=== PATIENT | female | born 1935 | race Caucasian/White ===

== ENCOUNTER 2025-08-27 21:40 | Emergency (ER) | payer OTHER ==
[2025-08-27] MEDS ORDERED: NA CHLORIDE 0.9% 1,000 ML ONE (22:12)
[2025-08-27 22:42] LABS: Absolute Lymphocytes (CBC) 3.9 K/uL (0.7-4.9); Hematocrit 37.0 % (36.0-45.0); Hemoglobin 12.0 g/dL (12.0-15.0); MCH 29.9 pg (27.0-35.0); MCHC 32.4 g/dL (32.0-36.0); MCV 92.4 fL (80-100); MPV 8.2 fL (7.6-11.3); Nucleated RBC Absolute Count 0.0 (0-0); Nucleated Red Blood Cells % 0.1 % (0-0); RBC Red Blood Cell Count 4.00 M/uL (3.86-4.86); White Blood Count 12.00 thou/uL (4.3-10.9)
[2025-08-27 22:44] LABS: Sqamous Epithelial <5 /HPF (None Seen); Urine Crystals Unidentified Few /HPF (None Seen); Urine Micro Reflex YN NO BILL MICROSCOPIC; Urine WBC Clump Occasional /HPF (None Seen)
[2025-08-27 22:50] LABS: PT Prothrombin Time 11.7 SECONDS (10-13.0); PTT, Activated Partial Thromb 31.4 SECONDS (27.2-37.4); Protime INR 1.04
[2025-08-27 22:59] LABS: Influenza A Ag Negative; Influenza B Ag Negative; SARS-CoV-2 Antigen Rapid Res Negative (Negative)
[2025-08-27 23:08] LABS: ALT/SGPT 21.0 U/L (13-56); AST/SGOT 16.0 U/L (15-37); Albumin 3.7 g/dL (3.4-5.0); Albumin/Globulin Ratio 0.9 (1.1-1.8); Alkaline Phosphatase 92.0 U/L (45-117); Anion Gap 10.4 mEq/L (5.0-15.0); BUN Blood Urea Nitrogen 21.0 mg/dL (7-18); Globulin 3.9 g/dL (2.3-3.5); Glucose Level 104.0 mg/dL (74-106); NT PRO-BNP 224.0 pg/mL (<450); Potassium 4.4 mEq/L (3.5-5.1); Thyroid Stimulating Hormone 3.11 uIU/mL (0.358-3.740); Troponin High Sensitivity 7.6 pg/mL (<58.9)
--- NOTE | 2025-08-27 23:49 | RAD REPORT ---
PROCEDURE: CT Head Without Intravenous Contrast CLINICAL INDICATION: The patient is 89 years old and is Female; AMS TECHNIQUE: Axial computed tomography images of the head/brain without intravenous contrast. Sagittal and coron al reformatted images were created and reviewed. This CT exam was performed using one or more of the following dose reduction techniques: automated exposure control, adjustment of the mA and/or kV according to patient size, and/or use of iterative reconstruction technique. DLP: 1648 mGy*cm COMPARISON: None. FINDINGS: BRAIN: Cerebral volume loss and chronic small vessel ischemic changes. No hemorrhage. No mass effect or midline shift. VENTRICLES: Unremarkable. No ventriculomegaly. BONES/JOINTS: Unremarkable. No acute fracture. SOFT TISSUES: Unremarkable. VASCULATURE: Vascular calcifications. SINUSES: Unremarkable as visualized. No acute sinusitis. MASTOID AIR CELLS: Unremarkable as visualized. No mastoid effusion. ORBITS: Prior cataract surgery. IMPRESSION: 1. No acute intracranial hemorrhage, hydrocephalus or herniation. 2. Cerebral volume loss and chronic small vessel ischemic changes. Consider MRI brain for further evaluation. Electronically signed by: Jairo Flores DO 08/27/2025 11:41 PM CDT RP 9 Due to temporary technical issues with the PACS/[employer] reporting system, reports are being lida d by the in-house radiologist without review as a courtesy to ensure prompt reporting the interpreting radiologist is fully responsible for the content of the report. Transcribed Date/Time: 08/27/2025 11:49 PM
--- NOTE | 2025-08-27 23:49 | RAD REPORT ---
EXAM: CT Chest, Abdomen and Pelvis Without Intravenous Contrast CLINICAL HISTORY: The patient is 89 years old and is Female; ureteral stent right TECHNIQUE: Axial computed tomography images of the chest, abdomen and pelvis without intravenous contrast. S agittal and coronal reformatted images were created and reviewed. This CT exam was performed using one or more of the following dose reduction techniques: automated exposure control, adjustmen t of the mA and/or kV according to patient size, and/or use of iterative reconstruction technique. COMPARISON: No relevant prior studies available. FINDINGS: CHEST: LUNGS AND PLEURAL SPACES: Scarring of the lung apices is noted. The lungs are otherwise well-infl ated and clear. There is no effusion or pneumothorax. No mass. HEART: No cardiomegaly. No pericardial effusion. ABDOMEN: LIVER: Homogeneous without focal mass. GALLBLADDER AND BILE DUCTS: Surgical clips are present in the right upper quadrant, consistent wi th previous cholecystectomy. PANCREAS: Unremarkable. No ductal dilation. SPLEEN: Unremarkable. ADRENALS: Unremarkable. No mass. KIDNEYS AND URETERS: Mild/moderate right hydronephrosis and dilatation of the right renal pelvis and proximal right ureter is noted. There is no hydroureteronephrosis of the left kidney. No obstructing renal or ureteral calculus of either kidney is noted. STOMACH AND BOWEL: Stomach is relatively decompressed. The small bowel is normal in caliber. A mo derate to large amount of stool is noted throughout colon. There is no mucosal thickening or evidence of obstruction. PELVIS: APPENDIX: The appendix is not definitively visualized. However, there are no inflammatory changes seen at the expected location of the appendix to suggest appendicitis. BLADDER: Unremarkable. No stones. REPRODUCTIVE: The patient is status post hysterectomy. CHEST, ABDOMEN and PELVIS: INTRAPERITONEAL SPACE: Unremarkable. No significant fluid collection. No free air. BONES/JOINTS: Scoliotic curvature of the lumbar spine is present. Severe left hip joint space peter rowing, subchondral cyst formation, and sclerosis is present. There is no acute fracture. SOFT TISSUES: The soft tissues are normal. VASCULATURE: Atherosclerosis of the vasculature is present. The vessels are normal in caliber. No aortic aneurysm. LYMPH NODES: Unremarkable. No enlarged lymph nodes. TUBES, LINES AND DEVICES: A right double-J ureteral stent is present. The superior aspect of the stent is located within the proximal ureter beyond the UPJ. The distal aspect is present within the bladder. IMPRESSION: 1. Right double-J ureteral stent superior aspect located in the proximal ureter, inferior to the UP J. Mild to moderate right hydronephrosis and dilatation of the right renal pelvis and proximal ureter. 2. Moderate to large stool burden without obstruction. Electronically signed by: Allie France MD 08/27/2025 11:45 PM CDT RP Due to temporary technical issues with the PACS/[employer] reporting system, reports are being lida d by the in-house radiologist without review as a courtesy to ensure prompt reporting the interpreting radiologist is fully responsible for the content of the report. Transcribed Date/Time: 08/27/2025 11:48 PM
--- NOTE | 2025-08-28 00:41 | EDPHYS ---
Physician Documentation [facility] Name: Unique Henriquez Age: 89 yrs Sex: Female : 1935 Arrival Date: 08/27/2025 Time: 21:40 Bed 7 Private MD: ED Physician Ramón Power HPI: 08/27 22:09 This 89 yrs old Female presents to ER via Unassigned with complaints of sp4 confusion, slow mentation. 08/28 06:22 Patient presents with complaint of acute confusion and slow mentation developing over sp4 the past 2 days. Historical: - Allergies: 08/27 22:17 No Known Allergies; ha1 - PMHx: 22:17 Hypertensive disorder; UTIs; ha1 - PSHx: 22:17 bladder stent; ha1 - Immunization history:: Adult Immunizations up to date. - Infectious Disease History:: Denies. - Social history:: Smoking status: unknown. - Family history:: not pertinent. ROS: 08/28 06:22 Constitutional: Negative for fever, chills, and weight loss, positive for mental sp4 slowing All other systems are negative, Exam: 06:22 Constitutional: This is a well developed, well nourished patient who is awake, alert, sp4 and in no acute distress. Head/Face: Normocephalic, atraumatic. Eyes: Pupils equal round and reactive to light, extra-ocular motions intact. Lids and lashes normal. Conjunctiva and sclera are not injected. Cornea within normal limits. Periorbital areas with no swelling, redness, or edema. ENT: Nares patent. No nasal discharge, no septal abnormalities noted. Tympanic membranes are normal and external auditory canals are clear. Oropharynx with no redness, swelling, or masses, exudates, or evidence of obstruction, uvula midline. Mucous membranes moist. Neck: Trachea midline, no thyromegaly or masses palpated, and no cervical lymphadenopathy. Supple, full range of motion without nuchal rigidity, or vertebral point tenderness. Chest/axilla: Normal chest wall appearance and motion. Nontender with no deformity. No lesions are appreciated. Cardiovascular: Regular rate and rhythm with a normal S1 and S2. No gallops, murmurs, or rubs. No pulse deficits. Respiratory: Lungs have equal breath sounds bilaterally, clear to auscultation and percussion. No rales, rhonchi or wheezes noted. No increased work of breathing, no retractions or nasal flaring. Abdomen/GI: Soft, with normal bowel sounds. No distension or tympany. No guarding or rebound. No evidence of tenderness throughout. Back: No spinal tenderness. No costovertebral tenderness. Skin: Warm, dry with normal turgor. Normal color with no rashes, no lesions, and no evidence of cellulitis. MS/ Extremity: Pulses equal, no cyanosis. Neurovascular intact. Full, normal range of motion. Neuro: Awake and alert, GCS 15, oriented to person, place, time, and situation. Cranial nerves II-XII grossly intact. Motor strength 5/5 in all extremities. Sensory grossly intact. Psych: Awake, alert, with orientation to person, place and time. Behavior, mood, and affect are within normal limits 06:22 ECG was reviewed by the Attending Physician. EKG at 2238 normal sinus rhythm, normal EKG Vital Signs: 08/27 21:59 BP 164 / 84; Pulse 66; Resp 19 S; Temp 97.6(O); Pulse Ox 98% on R/A; Weight 68.04 kg; ha1 Height 5 ft. 3 in. ; 08/28 00:25 BP 150 / 50; Pulse 78; Resp 19; Pulse Ox 97% on R/A; kd3 08/27 21:59 Body Mass Index 26.57 (68.04 kg, 160.02 cm) ha1 NIH Stroke Scale Scores: 06:24 NIHSS Score: 0 sp4 [place] Score: 06:24 Eye Response: spontaneous(4). Motor Response: obeys commands(6). Verbal Response: sp4 oriented(5). Total: 15. MDM: 08/27 22:11 Medical Screening Exam initiated sp4 08/28 06:25 Differential Diagnosis: CVA, electrolyte abnormality, hypoglycemia, intracranial bleed, sp4 pneumonia, seizure, sepsis, TIA, UTI, volume depletion. Data reviewed: vital signs, nurses notes, lab test result(s), cardiac enzymes, CBC, electrolytes, hepatic panel, urinalysis, EKG, radiologic studies, CT scan, plain films. Consideration of Admission/Observation Escalation of care including admission/observation considered. ED course: Patient has what appears to be stent urine, without signs of acute UTI. Patient stable for discharge home. Recommends follow-up with primary care physician Dr. العراقي. 06:26 ED course: 1. Right double-J ureteral stent superior aspect located in the proximal sp4 ureter, inferior to the UPJ. Mild to moderate right hydronephrosis and dilatation of the right renal pelvis and proximal ureter. 2. Moderate to large stool burden without obstruction. Electronically signed by: Allie France MD 08/27/2025 11:45 PM. ED course: COMPARISON: None. FINDINGS: BRAIN: Cerebral volume loss and chronic small vessel ischemic changes. No hemorrhage. No mass effect or midline shift. VENTRICLES: Unremarkable. No ventriculomegaly. BONES/JOINTS: Unremarkable. No acute fracture. SOFT TISSUES: Unremarkable. VASCULATURE: Vascular calcifications. SINUSES: Unremarkable as visualized. No acute sinusitis. MASTOID AIR CELLS: Unremarkable as visualized. No mastoid effusion. ORBITS: Prior cataract surgery. IMPRESSION: 1. No acute intracranial hemorrhage, hydrocephalus or herniation. 2. Cerebral volume loss and chronic small vessel ischemic changes. Consider MRI brain for further evaluation.. 08/27 22:10 Order name: BNP; Complete Time: 00: 08/27 22:10 Order name: Blood Culture Adult (2) [facility] 08/27 22:10 Order name: CBC with Diff; Complete Time: 00: 08/27 22:10 Order name: CMP; Complete Time: 00: [facility] 08/27 22:10 Order name: Lactate w/ 2H reflex if indic.; Complete Time: 00: [facility] 08/27 22:10 Order name: Protime (+inr); Complete Time: 00: [facility] 08/27 22:10 Order name: Ptt, Activated; Complete Time: 00: [facility] 08/27 22:10 Order name: Troponin HS; Complete Time: 00: [facility] 08/27 22:10 Order name: UA W/ Microscopic; Complete Time: 00: 08/27 22:11 Order name: COVID-19 Ag + Flu A+B Ag; Complete Time: 00: 08/27 22:11 Order name: TSH; Complete Time: 00: [facility] 08/27 22:11 Order name: T4 Free; Complete Time: 00: [facility] 08/27 22:10 Order name: CT Head Brain wo Cont; Complete Time: 00:21 sp4 08/27 22:11 Order name: CT Chest Abdomen Pelvis W/O Contrast; Complete Time: 00:21 sp4 08/27 22:10 Order name: Accucheck; Complete Time: 23:14 sp4 08/27 22:10 Order name: Cardiac monitoring; Complete Time: 22:38 sp4 08/27 22:10 Order name: Cath; Complete Time: 22:38 sp4 08/27 22:10 Order name: EKG - Nurse/Tech; Complete Time: 22:40 sp4 08/27 22:10 Order name: IV Saline Lock - Large Bore; Complete Time: 22:38 sp4 08/27 22:10 Order name: Labs collected and sent; Complete Time: 22:38 sp4 08/27 22:10 Order name: O2 Per Protocol; Complete Time: 22:38 sp4 08/27 22:10 Order name: O2 Sat Monitoring; Complete Time: 22:38 sp4 08/27 22:10 Order name: Vital Signs; Complete Time: 22:38 sp4 EC/26 22:38 Rate is 62 beats/min. Rhythm is regular, Normal Sinus Rhythm. QRS [place] is Normal. ND sp4 interval is normal. QRS interval is normal. QT interval is normal. No Q waves. T waves are Normal. No ST changes noted. Clinical impression: Normal ECG. Interpreted by me. Reviewed by me. Administered Medications: 22:54 Drug: NS 0.9% IV 1000 ml IV at 100 ml/hr once; to be given as a bolus over 60 minutes lg3 Route: IV; Rate: 100 ml/hr; Site: right antecubital; 08/28 01:25 Follow up: IV Status: Order to discontinue infusion kd3 Disposition: 08/29 00:19 Chart complete. sp4 Disposition Summary: 08/28/25 00:40 Discharge Ordered Notes: Return to ER for any other medical concerns Location: Home sp4 Problem: new sp4 Symptoms: have improved sp4 Condition: Stable sp4 Diagnosis - Acute hypoactive delirium sp4 Followup: sp4 - With: Bryan العراقي MD - When: 7 - 10 days - Reason: Recheck today's complaints Discharge Instructions: - Discharge Summary Sheet sp4 - Delirium sp4 Forms: - Patient Portal Instructions sp4 NIH Stroke Scale - NIH Stroke Score Date: 08/28/2025 Time: 06:24 Total Score = 0 10. Dysarthria (speech clarity - read or repeat words) - 0(Normal) 11. Extinction and Inattention (visual/tactile/auditory/spatial/personal) - 0(No abnormality) 1a. Level of Consciousness (LOC) - 0(Alert) 1b. Level of Consciousness (LOC) (Month \T\ Age) - 0(Both) 1c. LOC Commands (Open \T\ Closes Eyes/Electroencephalograph Technician) - 0(Both) 2. Best Gaze (Lateral Gaze Paresis) - 0(Normal) 3. Visual Field Loss - 0(No visual loss) 4. Facial Palsy - 0(Normal) 5a. Left Arm: Motor (10-second hold) - 0(No drift) 5b. Right Arm: Motor (10-second hold) - 0(No drift) 6a. Left Leg: Motor (5-second hold - always test supine) - 0(No drift) 6b. Right Leg: Motor (5-second hold - always test supine) - 0(No drift) 7. Limb Ataxia (finger/nose \T\ heel/garcia - test with eyes open) - 0(Absent) 8. Sensory Loss (pinprick arms/legs/face) - 0(Normal) 9. Best Language: Aphasia (description/naming/reading) - 0(No aphasia) Initials: sp4 Signatures: Dispatcher [employer] EDKhushbu Morrow RN RN lg3 Kathi Doherty RN RN ha1 Ramón Power MD MD sp4 Breann Mark RN kd3 Corrections: (The following items were deleted from the chart) 08/27 22:10 22:10 PROBNP+C.LAB.BRZ ordered. EDMS EDMS 22:10 22:10 BLOOD CULTURE*+BA.LAB.BRZ ordered. EDMS EDMS 22:10 22:10 CBC+H.LAB.BRZ ordered. EDMS EDMS 22:10 22:10 COMPREHENSIVE METABOLIC PANEL+C.LAB.BRZ ordered. EDMS EDMS 22:10 22:10 LACTATE+C.LAB.BRZ ordered. EDMS EDMS 22:10 22:10 PROTIME (+INR)+COAG.LAB.BRZ ordered. EDMS EDMS 22:10 22:10 PTT, ACTIVATED+COAG.LAB.BRAravind ordered. EDMS EDMS : 22:10 Troponin High Sensitivity+C.LAB.BRAravind ordered. EDMS EDMS : 22:10 UA W/ Microscopic+U.LAB.BRAravind ordered. EDMS EDMS : 22:11 Head Brain Wo Cont+CT.RAD.BRZ ordered. EDMS EDMS
--- NOTE | 2025-08-28 00:41 | ER ---
Nurse's Notes [facility] Name: Unique Henriquez Age: 89 yrs Sex: Female : 1935 Arrival Date: 08/27/2025 Time: 21:40 Bed 7 Private MD: Diagnosis: Acute hypoactive delirium Presentation: 08/27 21:59 Chief complaint: EMS states: DAUGHTER REPORTS THAT SHE HAS GETTING CONFUSED DURING THE ha1 NIGHT. BACK PAIN DUE A PREVIOUS FALL A WEEK AGO. 21:59 Coronavirus screen: Client denies travel out of the [place] in the last 14 days. Ebola ha1 Screen: No symptoms or risks identified at this time. Initial Sepsis Screen: Does the patient meet any 2 criteria? No. Patient's initial sepsis screen is negative. Does the patient have a suspected source of infection? No. Patient's initial sepsis screen is negative. Risk Assessment: Do you want to hurt yourself or someone else? Patient reports no desire to harm self or others. Onset of symptoms was August 27, 2025. 21:59 Method Of Arrival: EMS: [facility] ha1 21:59 Acuity: DHRUV 3 ha1 Historical: - Allergies: 22:17 No Known Allergies; ha1 - PMHx: 22:17 Hypertensive disorder; UTIs; ha1 - PSHx: 22:17 bladder stent; ha1 - Immunization history:: Adult Immunizations up to date. - Infectious Disease History:: Denies. - Social history:: Smoking status: unknown. - Family history:: not pertinent. Screenin:41 [facility] ED Fall Risk Assessment (Adult) History of falling in the last 3 months, kd3 including since admission Yes- fall prone (multiple falls) (3 pts) Confusion or Disorientation No (0 pts) Intoxicated or Sedated No (0 pts) Impaired Gait No (0 pts) Mobility Assist Device Used No (0 pt) Altered Elimination No (0 pt) Score/Fall Risk Level 3 or more points = High Risk Maintained a safe environment. Abuse screen: Denies threats or abuse. Denies injuries from another. Nutritional screening: No deficits noted. Tuberculosis screening: No symptoms or risk factors identified. Assessment: 22:36 General: Appears in no apparent distress. Behavior is calm, cooperative. Pain: kd3 Complains of pain in back. Neuro: Level of Consciousness is awake, alert, obeys commands, Oriented to person, place, time, situation. Cardiovascular: Patient's skin is warm and dry. Respiratory: Airway is patent Trachea midline Respiratory effort is even, unlabored, Respiratory pattern is regular, symmetrical. Vital Signs: 21:59 BP 164 / 84; Pulse 66; Resp 19 S; Temp 97.6(O); Pulse Ox 98% on R/A; Weight 68.04 kg; ha1 Height 5 ft. 3 in. ; 08/28 00:25 BP 150 / 50; Pulse 78; Resp 19; Pulse Ox 97% on R/A; kd3 08/27 21:59 Body Mass Index 26.57 (68.04 kg, 160.02 cm) ha1 Ken Coma Score: 06:24 Eye Response: spontaneous(4). Motor Response: obeys commands(6). Verbal Response: sp4 oriented(5). Total: 15. NIH Stroke Scale Scores: 06:24 NIHSS Score: 0 sp4 ED Course: 08/27 21:59 Patient arrived in ED. kd3 22:09 Ramón Power MD is Attending Physician. sp4 22:17 Triage completed. ha1 22:36 Breann Mark, MARY is Primary Nurse. kd3 22:38 UA Rfx Junior Cult if indicated Sent. kd3 22:38 T4 Free Sent. kd3 22:38 TSH Sent. kd3 22:38 COVID-19 Ag + Flu A+B Ag Sent. kd3 22:38 UA W/ Microscopic Sent. kd3 22:38 BNP Sent. kd3 22:38 Blood Culture Adult (2) Sent. kd3 22:38 CBC with Diff Sent. kd3 22:39 CMP Sent. kd3 22:39 Lactate w/ 2H reflex if indic. Sent. kd3 22:39 Protime (+inr) Sent. kd3 22:39 Ptt, Activated Sent. kd3 22:39 Troponin HS Sent. kd3 22:39 Inserted saline lock: 22 gauge in right antecubital area, using aseptic technique. kd3 Blood collected. Flushed with 10 mL NS. 22:39 Straight cath inserted, using sterile technique, 14 Fr. Specimen obtained. Returned kd3 cloudy urine. Patient tolerated well. 22:41 Arm band placed on right wrist. kd3 22:50 CT Head Brain wo Cont In Process Unspecified. EDMS 22:50 CT Chest Abdomen Pelvis W/O Contrast In Process Unspecified. EDMS 08/28 00:39 Bryan العراقي MD is Referral Physician. sp4 01:24 No provider procedures requiring assistance completed. IV discontinued, intact, kd3 bleeding controlled, No redness/swelling at site. Pressure dressing applied. 01:25 Patient has correct armband on for positive identification. Provided Education on: kd3 wheelchair use . Administered Medications: 08/27 22:54 Drug: NS 0.9% IV 1000 ml IV at 100 ml/hr once; to be given as a bolus over 60 minutes lg3 Route: IV; Rate: 100 ml/hr; Site: right antecubital; 08/28 01:25 Follow up: IV Status: Order to discontinue infusion kd3 Medication: 08/27 22:42 VIS not applicable for this client. kd3 Outcome: 08/28 00:40 Discharge ordered by . sp4 01:25 Discharged to home via wheelchair, with family, kd3 01:25 Condition: stable 01:25 Condition: stable 01:25 Discharge instructions given to patient, family, Instructed on discharge instructions, follow up and referral plans. Demonstrated understanding of instructions, follow-up care, 01:25 Patient left the ED. kd3 NIH Stroke Scale - NIH Stroke Score Date: 08/28/2025 Time: 06:24 Total Score = 0 10. Dysarthria (speech clarity - read or repeat words) - 0(Normal) 11. Extinction and Inattention (visual/tactile/auditory/spatial/personal) - 0(No abnormality) 1a. Level of Consciousness (LOC) - 0(Alert) 1b. Level of Consciousness (LOC) (Month \T\ Age) - 0(Both) 1c. LOC Commands (Open \T\ Closes Eyes/Pharmacy Technology Instructor) - 0(Both) 2. Best Gaze (Lateral Gaze Paresis) - 0(Normal) 3. Visual Field Loss - 0(No visual loss) 4. Facial Palsy - 0(Normal) 5a. Left Arm: Motor (10-second hold) - 0(No drift) 5b. Right Arm: Motor (10-second hold) - 0(No drift) 6a. Left Leg: Motor (5-second hold - always test supine) - 0(No drift) 6b. Right Leg: Motor (5-second hold - always test supine) - 0(No drift) 7. Limb Ataxia (finger/nose \T\ heel/garcia - test with eyes open) - 0(Absent) 8. Sensory Loss (pinprick arms/legs/face) - 0(Normal) 9. Best Language: Aphasia (description/naming/reading) - 0(No aphasia) Initials: sp4 Signatures: Dispatcher [employer] EDKhushbu Morrow RN RN lg3 Breann Mark RN RN kd3 Kathi Doherty RN RN ha1 Ramón Power MD MD sp4
[2025-08-28 02:43] VITALS: TEMP 97.6
[2025-08-28 02:44] VITALS: BP 150/50; O2SAT 97
== END 2025-08-28 01:25 | disposition home or self-care (01) ==
LOC: ER 21:40
DX: R41.0 Disorientation, unspecified (principal); I10 Essential (primary) hypertension; Z87.440 Personal history of urinary (tract) infections; Z11.52 Encounter for screening for COVID-19
CPT/HCPCS: 96361; 93005; 87040 ×2; 85025; 81001; 36415; 85610; 83605; 85730; 84443; 84484; 84439; 80053; 83880; 70450; 71250; 74176; 51702; 96360; 99285; 87428; J7030